=== PATIENT | female | born 1965 | race Hispanic/Latino ===

== ENCOUNTER 2018-11-19 07:34 | Inpatient (IN) | payer OTHER ==
[2018-11-19 08:00] VITALS: BMI 25.8
[2018-11-19] MEDS ORDERED: Sodium Chloride 0.9% 1,000 ML IV ONE (08:01)
[2018-11-19] MEDS ORDERED: Sodium Chloride 0.9% 1,000 ML ONE (08:20)
[2018-11-19 09:09] LABS: BASO % 0.4 % (0.0-2.0); EOS % 0.6 % (0.0-4.0); HEMOGLOBIN 13.3 g/dL (11.0-16.0); LYMPH % 15.2 % (20.0-40.0); MEAN CELL VOLUME 86.3 fL (81.0-99.0); MEAN CORPUSCULAR HEMOGLOBIN 29.3 pg (27.0-31.0); MEAN CORPUSCULAR HGB CONC 33.9 g/dL (33.0-37.0); MEAN PLATELET VOLUME 8.1 fL (7.2-11.7); MONO # 0.4 K/uL (0.0-0.8); MONO % 5.3 % (0.0-10.0); NEUT # 5.3 K/uL (1.8-7.0); NEUT % 78.5 % (50.0-75.0); RBC 4.55 Mil/uL (3.80-5.20); RED CELL DISTRIBUTION WIDTH 13.5 % (11.5-14.5); WHITE BLOOD COUNT 6.8 K/uL (4.8-10.8)
[2018-11-19 09:14] LABS: SQUAMOUS EPITHIAL 6 /hpf (0-5); URINE BACTERIA RARE (<OCC); URINE BILIRUBIN NEGATIVE (NEGATIVE); URINE BLOOD 1+ (NEGATIVE); URINE CLARITY Hazy (Clear); URINE COLOR Yellow (YELLOW); URINE GLUCOSE (UA) NORMAL (Normal); URINE LEUKOCYTE ESTERASE TRACE Leu/uL (Negative); URINE PROTEIN NEGATIVE (NEGATIVE); URINE UROBILINOGEN NORMAL mg/dL (0.2-1.0)
--- NOTE | 2018-11-19 09:18 | C.PDOC ---
History Of Present Illness 53 year old female is brought into the emergency department by her who states that she has been acting strange. The patient reports that she has run out of her psychiatric medications and reports feeling anxious and nauseous. Patient denies pain, suicidal or homicidal ideation. Time Seen by Provider: 11/19/18 07:54 Chief Complaint (Nursing): Psychiatric Evaluation History Per: Patient, Family () Onset/Duration Of Symptoms: Hrs Current Symptoms Are (Timing): Still Present Suicide/Self Injury Attempted (Context): None Associated Symptoms: Anxiety, Other (nausea). denies: Suicidal Thoughts, Suicidal Plan Involuntary Hold By: None Past Medical History Reviewed: Historical Data, Nursing Documentation, Vital Signs Vital Signs: Last Vital Signs Temp 97.6 F 11/19/18 07:54 Pulse 113 H 11/19/18 07:54 Resp 20 11/19/18 07:54 BP 162/74 H 11/19/18 07:54 Pulse Ox 98 11/19/18 07:54 - Medical History PMH: Anxiety, Arthritis, Depression, Fibromyalgia Denies: Diabetes, Hepatitis, HIV, HTN, Chronic Kidney Disease, Seizures, Sexually Transmitted Disease Surgical History: No Surg Hx Family History: States: Unknown Family Hx - Social History Hx Alcohol Use: No Hx Substance Use: No - Immunization History Hx Tetanus Toxoid Vaccination: No Review Of Systems Except As Marked, All Systems Reviewed And Found Negative. Gastrointestinal: Positive for: Nausea Psych: Positive for: Anxiety Physical Exam - Physical Exam Appears: Non-toxic, No Acute Distress Skin: Normal Color, Warm, Dry Head: Atraumatic, Normacephalic Eye(s): bilateral: Normal Inspection, PERRL, EOMI Nose: Normal Oral Mucosa: Moist Neck: Normal, Supple Chest: Symmetrical, No Tenderness Cardiovascular: Rhythm Regular, No Murmur Respiratory: Normal Breath Sounds, No Rales, No Rhonchi, No Wheezing Gastrointestinal/Abdominal: Soft, No Tenderness, No Guarding, No Rebound Extremity: Bilateral: Atraumatic, Normal Color And Temperature, Normal ROM Neurological/Psych: Oriented x3, Normal Speech, Normal Cognition ED Course And Treatment - Laboratory Results Result Diagrams: 11/19/18 09:02 11/19/18 09:02 O2 Sat by Pulse Oximetry: 98 (RA) Pulse Ox Interpretation: Normal Medical Decision Making Medical Decision Making: Plan: Chemistry Bloodwork Ativan 0.5mg IVP NaCl IV Fluids Zofran 4mg IVP Urinalysis Assessment: Anxiety Disposition Discussed With Dr.: Makayla Ramon Counseled Patient/Family Regarding: Studies Performed - Disposition Disposition: HOSPITALIZED Disposition Time: 12:43 Condition: FAIR Forms: [facility] (Albanian) - Clinical Impression Clinical Impression: Moderate major depression, single episode - Scribe Statement The provider has reviewed the documentation as recorded by the Scribe (Seng Shwa) Provider Attestation: All medical record entries made by the Scribe were at my direction and personally dictated by me. I have reviewed the chart and agree that the record accurately reflects my personal performance of the history, physical exam, medical decision making, and the department course for this patient. I have also personally directed, reviewed, and agree with the discharge instructions and disposition.
[2018-11-19 09:43] LABS: ALB/GLOB RATIO 1.4 (1.0-2.1); ALBUMIN 4.7 g/dL (3.5-5.0); ALT/SGPT 36 U/L (9-52); AST/SGOT 31 U/L (14-36); BLOOD UREA NITROGEN 10 mg/dL (7-17); CALCIUM 10.2 mg/dl (8.6-10.4); GFR NON-AFRICAN AMERICAN > 60
[2018-11-19 09:51] LABS: ACETAMINOPHEN < 10.0 ug/mL (10.0-30.0); SALICYLATE < 1.0 mg/dL 1
[2018-11-19 09:52] LABS: BARBITURATES, UR NEGATIVE (NEGATIVE); BENZODIAZEPINES, UR NEGATIVE (NEGATIVE); PHENCYCLIDINE, UR NEGATIVE (NEGATIVE)
[2018-11-19 09:56] LABS: OPIATES, UR POSITIVE (NEGATIVE)
--- NOTE | 2018-11-19 15:49 | PCM.BM ---
<Helen Ibanez - Last Filed: 11/19/18 15:46> Treatment Plan Problems - Problems identified on initial assessmt Depression Date Initiated: 11/19/18 Time Initiated: 15:47 Assessment reference: NA Status: Active Anxiety Date Initiated: 11/19/18 Time Initiated: 15:47 Assessment reference: NA Status: Active Treatment assets and liabiliti Patient Assests: good support system, negotiates basic needs, cognitively intact, good interpersonal skills, strong srinivasan, cooperative, educated, self- reliant, ADL independent Patient Liabilities: physical pain, medical problems - Milieu Protocol Maintain good personal hygiene: daily Encourage regular showers Conduct patient checks and document Observation sheet: Q15 minutes Maintain personal safety: every shift Educate patient to report safety concerns to staff, every shift Monitor environment for contraband/sharps Medication safety: Monitor for expected outcome, potential side effects: every shift, Assess barriers to learning: every shift, Assess readiness for medication education: every shift <Makayla Ramon - Last Filed: 11/21/18 11:34> - Diagnosis (1) Bipolar affective disorder, mixed, severe, with psychotic behavior Status: Acute Interventions: 11/21/18 11:35 * Assess/adjust medications daily and /or as needed * See patient on an individual basis 7x/week to assess level of manic behaviors and stability * Discuss risks, benefits, side effects and alternatives of medications * <Ysabel Adams - Last Filed: 11/21/18 12:02> Family Contact Family involvement: Family/SO is involved Family contact: Patient declines to allow family contact at present - Goals for Treatment Patient goals for treatment: "I need the right medication." Discharge/Continuing Care - Education Needs Education Needs: Patient Medication, Patient Coping Skills - Discharge Discharge Criteria: Tolerates medication w/o severe side effects, Reduction of target symptoms Discharge to:: Home, With Family - Treatment Team Participation Discussed with Family/SO: No Was Patient/Family/SO present at Treatment Team Meeting: Yes
[2018-11-19] MEDS: Tramadol 25 mg PO PRN (18:13)
[2018-11-20] MEDS: Tramadol 25 mg PO PRN ×2 (00:35→17:04)
[2018-11-20] MEDS ORDERED: Pneumococcal 23-Valent Vaccine IM ONE (10:00)
--- NOTE | 2018-11-20 10:27 | PCM.PSYCH ---
Initial Psychiatric Evaluation - Initial Psychiatric Evaluation Type of Admission: Voluntary Legal Status: Capacity Chief Complaint (in patient's own words): I was feeling very anxious.' History of Present Illness and Precipitating Events: Patient is a 53 years old female who is currently living with her son, came to the ED with increasingly depressed mood and passive suicidal ideation Patient appeared somewhat disorganized and internally preoccupied throughout the interview. She appeared disheveled and unkempt. She remained a poor historian. Patient reports that she has daily panic attacks, because her has history of seizures. Patient reports somatic symptoms, including shoulder pains, back pains, abdominal pain and chest pain. As per her, today she had a panic attack at home, she became increasingly depre ssed and concerned and came to the hospital to get help. Patient reports depressed mood, times feelings of hopelessness and helplessness, poor sleep and poor appetite. She reports at times irritability, agitation and poor sleep. She denies any auditory or visual hallucinations or any paranoia. However she appeared somewhat paranoid and delusional. She reports that she has trigeminal nerve pain and also c/o of headache, left shoulder and neck pain...uses Motrin for pain at home. Pt focuses on medical issues, including right hip pain which required surgery, that she did not follow up with one year ago due to finances. States she has 3 1/2 yrs of college and did various jobs, but has not worked in 6 yrs. She reports history of suicidal ideation depressed but denies any suicidal attempt. She reports of taking Percocets and OxyContin for pains. She also reports of taking Klonopin for anxiety. Past medical history Fibromyalgia, leg pain, shoulder pain, knee pain Current Medications: Active Medications Generic Name Dose Route Start Last Admin Trade Name Freq PRN Reason Stop Dose Admin Clonidine HCl 0.1 mg 11/19/18 19:44 11/19/18 20:11 Catapres PO 0.1 mg Q6 PRN Administration Systolic Blood Pressure Influenza Virus Vaccine 60 mcg 11/21/18 10:00 Fluzone Quad [id number] IM 11/21/18 10:01 .ONCE ONE Lorazepam 1 mg 11/19/18 16:35 11/20/18 00:35 Ativan PO 1 mg Q6 PRN Administration Anxiety Quetiapine Fumarate 50 mg 11/19/18 22:00 11/20/18 00:37 Seroquel PO 50 mg HS ZEE Administration Tramadol HCl 25 mg 11/19/18 16:35 11/20/18 00:35 Ultram PO 25 mg Q6 PRN Administration Pain, severe (8-10) Zolpidem Tartrate 5 mg 11/19/18 22:45 Ambien PO HS PRN Insomnia Past Psychiatric History - Past Psychiatric History Previous Treatment History: Inpatient Pertinent Medical Hx (Current Medical&Sleep Prob, Allergies): Allergies Allergy/AdvReac Type Severity Reaction Status Date / Time haloperidol [From Haldol] AdvReac FATIGUE Verified 11/19/18 07:52 FLUoxetine [Prozac] 20 mg PO DAILY #14 cap 08/28/18 Pantoprazole [Protonix EC Tab] 20 mg PO 0600 #7 ect 08/28/18 QUEtiapine [Seroquel] 100 mg PO HS #14 tab 08/28/18 Quetiapine Fumarate [Seroquel] 50 mg PO DAILY #14 tablet 08/28/18 Zolpidem [Ambien] 5 mg PO HS #14 tab 08/28/18 hydrOXYzine Pamoate [Vistaril] 50 mg PO BID PRN #14 cap 08/28/18 Review of Systems - Review of Systems All systems: reviewed and no additional remarkable complaints except - Psychiatric Psychiatric: Anxiety, Irritability, Mood Swings, Paranoia Mental Status Examination - Personal Presentation Personal Presentation: Looks stated age - Affect Affect: Constricted - Motor Activity Motor Activity: Psychomotor Retardation - Reliability in Providing Information Reliability in Providing Information: Poor, due to alteration in thoughts, Poor, due to altered mood - Speech Speech: Disorganized - Mood Mood: Anxious - Formal Thought Process Formal Thought Process: Delusions, Paranoia, Loosening of associations - Obsessions/Compulsions Obsessions: No Compulsions: No DSM 5 DX - DSM 5 DSM 5 Diagnosis: Bipolar disorder mixed severe with psychotic features General anxiety disorder Sedated/hypnotic use disorder moderate Opioid use disorder moderate - Recommended/Plan of Treatment Treatment Recommendations and Plan of Treatment: Bipolar disorder mixed severe with psychotic features General anxiety disorder Sedated/hypnotic use disorder moderate Opioid use disorder moderate CBT Currently patient Supportive therapy and group therapy Fluoxetine 20 mg p.o. daily Prolixin 5 mg p.o. twice daily Cogentin 1 mg p.o. twice daily Seroquel 100 mg p.o. nightly Ativan 1 mg p.o. every 6 hours as needed DC Klonopin DC Percocet Tramadol 25 mg p.o. every 6 hours as needed
[2018-11-21] MEDS: Tramadol 25 mg PO PRN ×2 (04:51→12:04)
[2018-11-21] MEDS ORDERED: Influenza Vaccine 60 MCG/0.5 ML SYR (3 yr & up) IM ONE (10:00)
[2018-11-21] MEDS ORDERED: Magnesium Hydroxide Susp 30 ml UD PO PRN (11:35)
--- NOTE | 2018-11-21 19:38 | PCM.PYCHPN ---
Psychiatric Progress Note - Psychiatric Progress Note Patient seen today, length of contact: 15 min Patient Chief Complaint: I m feeling very depressed and anxious.' Problems Identified/Issues Discussed: Patient was seen and evaluated, chart reviewed and discussed with the staff. Patient still reports anxiety, panic attacks and irritability. She does report sometimes depressed mood and at times feelings of hopelessness and helplessness. She denies any auditory hallucinations. However she still appears paranoid and internally preoccupied. She is taking medication but denies any side effects. Supportive therapy was given Medication Change: Yes Medical Record Reviewed: Yes Mental Status Examination - Cognitive Function Orientation: Person, Place, Situation, Time Memory: Intact Attention: WNL Concentration: Poor Association: WNL Fund of Knowledge: Poor - Mood Mood: Anxious - Affect Affect: Constricted - Speech Speech: Soft - Formal Thought Process Formal Thought Process: Loosening of associations - Suicidal Ideation Suicidal Ideation: No - Homicidal Ideation Homicidal Ideation: No Goal/Treatment Plan - Goal/Treatment Plan Need for Continued Stay: Severe depression anxiety, Severe functional impairment Progress Toward Problem(s) and Goals/Treatment Plan: Bipolar disorder mixed severe with psychotic features General anxiety disorder Sedated/hypnotic use disorder moderate Opioid use disorder moderate CBT Currently patient Supportive therapy and group therapy Fluoxetine 40 mg p.o. daily Prolixin 5 mg p.o. twice daily Cogentin 1 mg p.o. twice daily Seroquel 100 mg p.o. nightly Ativan 1 mg p.o. every 6 hours as needed Tramadol 25 mg p.o. every 6 hours as needed Neurontin 300 mg p.o. 3 times daily
[2018-11-23 06:29] VITALS: O2SAT 97
[2018-11-23] MEDS: Tramadol 25 mg PO PRN (12:06)
--- NOTE | 2018-11-25 20:53 | PCM.PYCHPN ---
Psychiatric Progress Note - Psychiatric Progress Note Patient seen today, length of contact: 15 min Patient Chief Complaint: I am feeling little better. Problems Identified/Issues Discussed: Patient seen, chart reviewed, case discussed with the staff. Issues related to illness and treatment were discussed with the patient and staff. Calm and partially cooperative. Mood reported as okay. Affect in appropriate, appeared depressed. Reported compliant with treatment with no adverse effects. Awake, alert and oriented x3. Memory intact. Patient was encouraged to attend groups and other activities on the unit. Aftercare discussed with the patient. Denied any delusions, auditory or visual hallucinations, no suicidal ideations or homicidal ideations at the time of evaluation. Medical Problems: Fibromyalgia Diagnostic Results: Reviewed DSM 5 Symptoms Update: Some improvement with treatment. Medication Change: No Medical Record Reviewed: Yes Mental Status Examination - Cognitive Function Orientation: Person, Place, Situation, Time Memory: Intact Attention: WNL Concentration: WNL Association: [facility] Fund of Knowledge: [facility] Decription of patient's judgement and insights: Fair - Mood Mood: Neutral - Affect Affect: Depressed - Speech Speech: Soft - Formal Thought Process Formal Thought Process: No Impairment Psychotic Thoughts and Behaviors: None - Suicidal Ideation Suicidal Ideation: No - Homicidal Ideation Homicidal Ideation: No Goal/Treatment Plan - Goal/Treatment Plan Need for Continued Stay: Remain at risks for inpatient hospitalization, Discharge may exacerbated symptoms, Severe functional impairment Progress Toward Problem(s) and Goals/Treatment Plan: Some improvement with treatment. Patient education. Supportive therapy. CBT for relapse prevention. CA for abstinence. Patient was encouraged to attend groups and other activities on the unit. Continue treatment as before. Estimated Date of D/C: 11/26/18 - Smoking Cessation Smoking Cessation Initiated: No
[2018-11-26] MEDS: Tramadol 25 mg PO PRN (06:45)
[2018-11-27] MEDS: Tramadol 25 mg PO PRN (04:55)
--- NOTE | 2018-11-27 10:25 | PCM.PYCHPN ---
Psychiatric Progress Note - Psychiatric Progress Note Patient seen today, length of contact: 15 min Patient Chief Complaint: I m feeling very depressed and anxious.' Problems Identified/Issues Discussed: Patient was seen and evaluated, chart reviewed and discussed with the staff. Patient still reports anxiety, panic attacks and irritability. She does report sometimes depressed mood and at times feelings of hopelessness and helplessness. She denies any auditory hallucinations. However she still appears paranoid and internally preoccupied. She is taking medication but denies any side effects. Supportive therapy was given Medication Change: No Medical Record Reviewed: Yes Mental Status Examination - Cognitive Function Orientation: Person, Place, Situation, Time Memory: Intact Attention: WNL Concentration: WNL Association: WNL Fund of Knowledge: WNL - Mood Mood: Neutral - Affect Affect: Depressed - Speech Speech: Soft - Formal Thought Process Formal Thought Process: No Impairment - Suicidal Ideation Suicidal Ideation: No - Homicidal Ideation Homicidal Ideation: No Goal/Treatment Plan - Goal/Treatment Plan Need for Continued Stay: Remain at risks for inpatient hospitalization, Discharge may exacerbated symptoms, Severe functional impairment Progress Toward Problem(s) and Goals/Treatment Plan: Bipolar disorder mixed severe with psychotic features General anxiety disorder Sedated/hypnotic use disorder moderate Opioid use disorder moderate CBT Currently patient Supportive therapy and group therapy Fluoxetine 40 mg p.o. daily Prolixin 5 mg p.o. twice daily Cogentin 1 mg p.o. twice daily Seroquel 100 mg p.o. nightly Ativan 1 mg p.o. every 6 hours as needed Tramadol 25 mg p.o. every 6 hours as needed Neurontin 300 mg p.o. 3 times daily Estimated Date of D/C: 11/26/18
--- NOTE | 2018-11-28 10:02 | PCM.BM ---
<ShaeYsabel mcneil - Last Filed: 11/28/18 10:02> Treatment Plan Problems - Problems identified on initial assessmt Depression Date Initiated: 11/19/18 Time Initiated: 15:47 Assessment reference: NA Status: Active Anxiety Date Initiated: 11/19/18 Time Initiated: 15:47 Assessment reference: NA Status: Active Treatment assets and liabiliti Patient Assests: good support system, negotiates basic needs, cognitively intact, good interpersonal skills, strong srinivasan, cooperative, educated, self- reliant, ADL independent Patient Liabilities: physical pain, medical problems - Milieu Protocol Maintain good personal hygiene: daily Encourage regular showers Conduct patient checks and document Observation sheet: Q15 minutes Maintain personal safety: every shift Educate patient to report safety concerns to staff, every shift Monitor environment for contraband/sharps Medication safety: Monitor for expected outcome, potential side effects: every shift, Assess barriers to learning: every shift, Assess readiness for medication education: every shift Milieu Narrative: Bipolar disorder mixed severe with psychotic features General anxiety disorder Sedated/hypnotic use disorder moderate Opioid use disorder moderate CBT Currently patient Supportive therapy and group therapy Fluoxetine 40 mg p.o. daily Prolixin 5 mg p.o. twice daily Cogentin 1 mg p.o. twice daily Seroquel 100 mg p.o. nightly Ativan 1 mg p.o. every 6 hours as needed Tramadol 25 mg p.o. every 6 hours as needed Neurontin 300 mg p.o. 3 times daily Family Contact Family involvement: Family/SO is involved Family contact: Patient declines to allow family contact at present - Goals for Treatment Patient goals for treatment: "I need the right medication." Discharge/Continuing Care - Education Needs Education Needs: Patient Medication, Patient Coping Skills - Discharge Discharge Criteria: Tolerates medication w/o severe side effects, Reduction of target symptoms Discharge to:: Home, With Family - Treatment Team Participation Patient/Family/SO Statement: Bipolar disorder mixed severe with psychotic features General anxiety disorder Sedated/hypnotic use disorder moderate Opioid use disorder moderate CBT Currently patient Supportive therapy and group therapy Fluoxetine 40 mg p.o. daily Prolixin 5 mg p.o. twice daily Cogentin 1 mg p.o. twice daily Seroquel 100 mg p.o. nightly Ativan 1 mg p.o. every 6 hours as needed Tramadol 25 mg p.o. every 6 hours as needed Neurontin 300 mg p.o. 3 times daily Discussed with Family/SO: No Was Patient/Family/SO present at Treatment Team Meeting: Yes Treatment Plan Review - Problem Depression Time Initiated: 15:47 Anxiety Time Initiated: 15:47 - Discharge / Continuing Care Discharge to:: Home, With Family Behavioral Health Services: Outpatient therapy Health Needs: Medications/Rx, Alcohol/Drug treatment <Kath Madden - Last Filed: 11/28/18 13:38> - Milieu Protocol Maintain good personal hygiene: daily Encourage regular showers, daily Remind patient to perform daily oral care, daily Assist patient to perform ADL's Maintain personal safety: every shift Educate patient to report safety concerns to staff, every shift Monitor environment for contraband/sharps Medication safety: Monitor for expected outcome, potential side effects: every shift, Assess barriers to learning: every shift, Assess readiness for medication education: every shift Treatment Plan Review - Problem Depression Date Initiated: 11/28/18 Time Initiated: 13:36 Progress toward outcomes: unchanged Anxiety Date Initiated: 11/28/18 Time Initiated: 13:38 Progress toward outcomes: unchanged
--- NOTE | 2018-11-28 17:11 | CARD ---
APPROVED REPORT Date of service: 11/19/2018 EKG Measurement Heart [id number] <Conclusion> Normal sinus rhythm Minimal voltage criteria for LVH, may be normal variant Borderline ECG
--- NOTE | 2018-11-29 00:26 | PCM.PYCHPN ---
Psychiatric Progress Note - Psychiatric Progress Note Patient seen today, length of contact: 15 min Patient Chief Complaint: I m feeling very depressed and anxious.' Problems Identified/Issues Discussed: Patient was seen and evaluated, chart reviewed and discussed with the staff. She does report sometimes depressed mood and at times feelings of hopelessness and helplessness. Patient still reports anxiety, panic attacks and irritability. She denies any auditory hallucinations. However she still appears paranoid and internally preoccupied. She is taking medication but denies any side effects. She needs to stay longer for further stabilization of the symptoms Supportive therapy was given Medication Change: No Medical Record Reviewed: Yes Mental Status Examination - Cognitive Function Orientation: Person, Place, Situation, Time Memory: Intact Attention: WNL Concentration: WNL Association: WNL Fund of Knowledge: Poor - Mood Mood: Anxious - Affect Affect: Constricted - Speech Speech: Soft - Formal Thought Process Formal Thought Process: Loosening of associations - Suicidal Ideation Suicidal Ideation: No - Homicidal Ideation Homicidal Ideation: No Goal/Treatment Plan - Goal/Treatment Plan Need for Continued Stay: Severe depression anxiety, Severe functional impairment Progress Toward Problem(s) and Goals/Treatment Plan: Bipolar disorder mixed severe with psychotic features General anxiety disorder Sedated/hypnotic use disorder moderate Opioid use disorder moderate CBT Currently patient Supportive therapy and group therapy Fluoxetine 40 mg p.o. daily Prolixin 5 mg p.o. twice daily Cogentin 1 mg p.o. twice daily Seroquel 100 mg p.o. nightly Ativan 1 mg p.o. every 6 hours as needed Tramadol 25 mg p.o. every 6 hours as needed Neurontin 300 mg p.o. 3 times daily Estimated Date of D/C: 12/01/18
--- NOTE | 2018-11-29 00:27 | PCM.PYCHPN ---
Psychiatric Progress Note - Psychiatric Progress Note Patient seen today, length of contact: 15 min Patient Chief Complaint: I m feeling very depressed.' Problems Identified/Issues Discussed: Patient was seen and evaluated, chart reviewed and discussed with the staff. She still appears paranoid and internally preoccupied. Patient still reports anxiety, panic attacks and irritability. She does report sometimes depressed mood and at times feelings of hopelessness a nd helplessness. She denies any auditory hallucinations. She is taking medication but denies any side effects. Supportive therapy was given Medication Change: No Medical Record Reviewed: Yes Mental Status Examination - Cognitive Function Orientation: Person, Place, Situation, Time Memory: Intact Attention: WNL Concentration: WNL Association: WNL Fund of Knowledge: Poor - Mood Mood: Anxious - Affect Affect: Constricted - Speech Speech: Soft - Formal Thought Process Formal Thought Process: Loosening of associations - Suicidal Ideation Suicidal Ideation: No - Homicidal Ideation Homicidal Ideation: No Goal/Treatment Plan - Goal/Treatment Plan Need for Continued Stay: Severe depression anxiety, Severe functional impairment Progress Toward Problem(s) and Goals/Treatment Plan: Bipolar disorder mixed severe with psychotic features General anxiety disorder Sedated/hypnotic use disorder moderate Opioid use disorder moderate CBT Currently patient Supportive therapy and group therapy Fluoxetine 40 mg p.o. daily Prolixin 5 mg p.o. twice daily Cogentin 1 mg p.o. twice daily Seroquel 100 mg p.o. nightly Ativan 1 mg p.o. every 6 hours as needed Tramadol 25 mg p.o. every 6 hours as needed Neurontin 300 mg p.o. 3 times daily Estimated Date of D/C: 11/26/18
[2018-11-29] MEDS: Tramadol 25 mg PO PRN (08:55)
--- NOTE | 2018-11-29 22:48 | PCM.PYCHPN ---
Psychiatric Progress Note - Psychiatric Progress Note Patient seen today, length of contact: 15 min Patient Chief Complaint: I am feeling better. Problems Identified/Issues Discussed: Patient seen, chart reviewed, case discussed with the staff. Issues related to illness and treatment were discussed with the patient and staff. Calm and partially cooperative. Mood reported as okay. Affect appropriate. Reported compliant with treatment with no adverse effects. Awake, alert and oriented x3. Memory intact. Patient was encouraged to attend groups and other activities on the unit. According to staff patient is still isolated in her room. Aftercare discussed with the patient. Denied any delusions, auditory or visual hallucinations, no suicidal ideations or homicidal ideations at the time of evaluation. Medical Problems: Fibromyalgia Diagnostic Results: Reviewed DSM 5 Symptoms Update: Some improvement with treatment Medication Change: No Medical Record Reviewed: Yes Mental Status Examination - Cognitive Function Orientation: Person, Place, Situation, Time Memory: Intact Attention: WNL Concentration: WNL Association: WN Fund of Knowledge: [facility] Decription of patient's judgement and insights: Fair - Mood Mood: Anxious (Much less than before) - Affect Affect: Other (Appropriate) - Speech Speech: Soft - Formal Thought Process Formal Thought Process: No Impairment Psychotic Thoughts and Behaviors: None - Suicidal Ideation Suicidal Ideation: No - Homicidal Ideation Homicidal Ideation: No Goal/Treatment Plan - Goal/Treatment Plan Need for Continued Stay: Remain at risks for inpatient hospitalization, Discharge may exacerbated symptoms, Severe functional impairment Progress Toward Problem(s) and Goals/Treatment Plan: Some improvement with treatment. Patient education. Supportive therapy. CBT for relapse prevention. PA for abstinence. Continue treatment as before. Estimated Date of D/C: 12/01/18 - Smoking Cessation Smoking Cessation Initiated: No
[2018-12-01 06:42] VITALS: BP 118/75; PULSE 69; RESP 20; TEMP 98.8
--- NOTE | 2018-12-01 11:42 | PCM.PYCHDC ---
Mental Status Examination - Mental Status Examination Orientation: Person, Place, Situation, Time Memory: Intact Mood: Neutral Affect: Constricted Speech: Soft Attention: WNL Concentration: WNL Association: WNL Formal Thought Process: No Impairment Description of patient's judgement and insight: good, fair Psychotic Thoughts and Behaviors: denies any AVH Suicidal Ideation: No Current Homicidal Ideation?: No Discharge Summary - Discharge Note Reason for Hospitalization: Patient is a 53 years old female who is currently living with her son, came to the ED with increasingly depressed mood and passive suicidal ideation Patient appeared somewhat disorganized and internally preoccupied throughout the interview. She appeared disheveled and unkempt. She remained a poor historian. Patient reports that she has daily panic attacks, because her has history of seizures. Patient reports somatic symptoms, including shoulder pains, back pains, abdominal pain and chest pain. As per her, today she had a panic attack at home, she became increasingly depressed and concerned and came to the hospital to get help. Patient reports depressed mood, times feelings of hopelessness and helplessness, poor sleep and poor appetite. She reports at times irritability, agitation and poor sleep. She denies any auditory or visual hallucinations or any paranoia. However she appeared somewhat paranoid and delusional. She reports that she has trigeminal nerve pain and also c/o of headache, left shoulder and neck pain...uses Motrin for pain at home. Pt focuses on medical issues, including right hip pain which required surgery, that she did not follow up with one year ago due to finances. States she has 3 1/2 yrs of college and did various jobs, but has not worked in 6 yrs. She reports history of suicidal ideation depressed but denies any suicidal attempt. She reports of taking Percocets and OxyContin for pains. She also reports of taking Klonopin for anxiety. Consultations:: List each consultation separately and include: 1. Reason for request. 2. Findings. 3. Follow-up Summary of Hospital Course include:: 1. Description of specific treatment plan utilized for patients during their course of treatmen. 2. Summarize the time- course for resolution of acute symptoms and/or regressed behaviors. 3. Describe issues identified and worked on during hospitalization. 4. Describe medication utilized. 5. Describe medical problems identified and treated. 6. Reassessment of suicide risk Summary of Hospital Course: Patient is a 53 years old female who is currently living with her son, came to the ED with increasingly depressed mood and passive suicidal ideation Patient appeared somewhat disorganized and internally preoccupied throughout the interview. She appeared disheveled and unkempt. She remained a poor historian. Patient reports that she has daily panic attacks, because her has history of seizures. Patient reports somatic symptoms, including shoulder pains, back pains, abdominal pain and chest pain. As per her, today she had a panic attack at home, she became increasingly depressed and concerned and came to the hospital to get help. Patient reports depressed mood, times feelings of hopelessness and helplessness, poor sleep and poor appetite. She reports at times irritability, agitation and poor sleep. She denies any auditory or visual hallucinations or any paranoia. However she appeared somewhat paranoid and delusional. She reports that she has trigeminal nerve pain and also c/o of headache, left shoulder and neck pain...uses Motrin for pain at home. Pt focuses on medical issues, including right hip pain which required surgery, that she did not follow up with one year ago due to finances. States she has 3 1/2 yrs of college and did various jobs, but has not worked in 6 yrs. She reports history of suicidal ideation depressed but denies any suicidal attempt. She reports of taking Percocets and OxyContin for pains. She also reports of taking Klonopin for anxiety. Past medical history Fibromyalgia, leg pain, shoulder pain, knee pain - Diagnosis (1) Bipolar affective disorder, mixed, severe, with psychotic behavior Current Visit: Yes Status: Acute - Final Diagnosis (DSM 5) Condition upon Discharge: FAIR Disposition: HOME/ ROUTINE Follow-up Treatment Plan: Bipolar disorder mixed severe with psychotic features General anxiety disorder Sedated/hypnotic use disorder moderate Opioid use disorder moderate CBT Currently patient Supportive therapy and group therapy Fluoxetine 40 mg p.o. daily Prolixin 5 mg p.o. twice daily Cogentin 1 mg p.o. twice daily Seroquel 100 mg p.o. nightly Ativan 1 mg p.o. every 6 hours as needed Tramadol 25 mg p.o. every 6 hours as needed Neurontin 300 mg p.o. 3 times daily Prescriptions/Medication Reconciliation: Benztropine [Cogentin] 1 mg PO BID #60 tab FLUoxetine [Prozac] 40 mg PO DAILY #30 cap fluPHENAZine [Prolixin] 10 mg PO BID #60 tab Gabapentin [Neurontin] 300 mg PO BID #60 cap QUEtiapine [Seroquel] 100 mg PO HS #30 tab
== END 2018-12-01 12:15 | disposition home or self-care (01) | DRG 753 ==
LOC: C.ER 07:34 → C.5E 12:42
PROVIDERS: ADMIT Psychiatry & Neurology Psychiatry; ATTEND Psychiatry & Neurology Psychiatry
PROC: GZHZZZZ Group Psychotherapy (ICD-10-PCS; principal; 2018-11-19)
PROC: GZ58ZZZ Individual Psychotherapy, Cognitive-Behavioral (ICD-10-PCS; 2018-11-19)
PROC: GZ56ZZZ Individual Psychotherapy, Supportive (ICD-10-PCS; 2018-11-19)
PROC: HZ52ZZZ Individual Psychotherapy for Substance Abuse Treatment, Cognitive-Behavioral (ICD-10-PCS; 2018-11-19)
PROC: HZ59ZZZ Individual Psychotherapy for Substance Abuse Treatment, Supportive (ICD-10-PCS; 2018-11-19)
PROC: HZ56ZZZ Individual Psychotherapy for Substance Abuse Treatment, Psychoeducation (ICD-10-PCS; 2018-11-19)
PROC: HZ42ZZZ Group Counseling for Substance Abuse Treatment, Cognitive-Behavioral (ICD-10-PCS; 2018-11-19)
PROC: HZ46ZZZ Group Counseling for Substance Abuse Treatment, Psychoeducation (ICD-10-PCS; 2018-11-19)
DX: F31.64 Bipolar disorder, current episode mixed, severe, with psychotic features (principal); R45.851 Suicidal ideations; F32.1 Major depressive disorder, single episode, moderate; F11.20 Opioid dependence, uncomplicated; F13.20 Sedative, hypnotic or anxiolytic dependence, uncomplicated; F41.1 Generalized anxiety disorder; M79.7 Fibromyalgia